=== PATIENT | female | born 1955 | race Caucasian/White ===

== ENCOUNTER 2017-05-04 20:13 | Emergency (ER) | payer MEDICAID ==
[~2017-05-04] VITALS: Ht 147.3 cm; Wt 91.2 kg
[2017-05-04 20:19] VITALS: BP 144/74
--- NOTE | 2017-05-04 21:19 | NUR ---
PT TAKEN TO BED 3
--- NOTE | 2017-05-04 21:19 | NUR ---
61Y F BIB FAMILY S/P TRIP AND FALL AT FOOD FOR LESS; SLIPPED IN WATER LAST NIGHT, LEFT FOOT PAIN, LEFT KNEE, LEFT THUMB PAIN. PT DENIES ANY LOC OR HEAD TRAUMA. PT AAOX4. BREATHING IS UNLABORED AND CLEAR BILAT. HX HTN, HIGH CHOLESTEROL
--- NOTE | 2017-05-04 21:24 | NUR ---
Dr. Zazueta evaluating patient at bedside.
[2017-05-04] MEDS ORDERED: KETOROLAC 30 MG/ML VIAL IM ONE (21:25)
--- NOTE | 2017-05-04 22:41 | NUR ---
Patient discharged with v/s stable. Written and verbal after care instructions given and explained. Patient alert, oriented and verbalized understanding of instructions. Ambulatory with steady gait. All questions addressed prior to discharge. ID band removed. Patient advised to follow up with PMD. Rx of NAPROXEN 500MG given. Patient educated on indication of medication including possible reaction and side effects. Opportunity to ask questions provided and answered.
[2017-05-04 22:42] VITALS: BP 132/79
== END 2017-05-04 22:41 | disposition home or self-care (01) ==
LOC: MED 20:13
DX: S93.602A Unspecified sprain of left foot, initial encounter (principal); M25.562 Pain in left knee; I10 Essential (primary) hypertension; E78.00 Pure hypercholesterolemia, unspecified; Z88.5 Allergy status to narcotic agent; W01.0XXA Fall on same level from slipping, tripping and stumbling without subsequent striking against object, initial encounter; Y93.89 Activity, other specified; Y92.89 Other specified places as the place of occurrence of the external cause; Y99.8 Other external cause status
CPT/HCPCS: 73562; 73630; 96372; 99284; J1885

== ENCOUNTER 2022-09-17 16:16 | Emergency (ER) | payer OTHER, MEDICAID ==
[~2022-09-17] VITALS: Ht 157.5 cm; Wt 88.5 kg
[2022-09-17 16:23] VITALS: BP 107/47
--- NOTE | 2022-09-17 16:27 | NUR ---
PT WHEELCHAIR ASSISTED TO BED 7
--- NOTE | 2022-09-17 16:30 | NUR ---
66YO FEMALE PT C/O SHARP LL BACK PAIN X2DAYS. RADIATION TO BACK OF L UPPER LEG W/ PAIN AT MOST ON MOVEMENT -NUMBING OR LOSS OF SENSATION. STATES RELIEF AFTER TRAMADOL BUT STOPPED TAKING DUE TO NAUSEA. LIMITED ROM AND NON AMB AT THIS TIME DUE TO PAIN. DENIES RECENT INJURY. PT AAOX4, WHEELCHAIR ASSISTED TO ROOM. HOB POSITIONED PER COMFORT HX: HTN, HLD ALLERGIES : CODEINE
[2022-09-17] MEDS ORDERED: KETOROLAC 30 MG/ML VIAL IM ONE (16:40)
[2022-09-17] MEDS ORDERED: CYCLOBENZAPRINE 10 MG TAB PO ONE (16:40)
--- NOTE | 2022-09-17 16:40 | NUR ---
MD LOMELI AT BEDSIDE FOR EVALUATION
[2022-09-17] MEDS ORDERED: LIDOCAINE 5% 1 EA PATCH TP ONE (16:54)
[2022-09-17] MEDS ORDERED: IBUP-1842 PO (17:40)
[2022-09-17] MEDS ORDERED: LID5T TP (17:40)
[2022-09-17] MEDS ORDERED: CYCL-711 PO (17:40)
--- NOTE | 2022-09-17 17:55 | NUR ---
Note la in EDM - 09/17/22 at 1757 by PHSEP Patient discharged with v/s stable. Written and verbal after care instructions FOR [facility] given and explained. Patient alert, oriented and verbalized understanding of instructions. Ambulatory with steady gait. All questions addressed prior to discharge. ID band removed. Patient advised to follow up with PMD. Rx of FLEXERIL, MOTRIN AND LIDODERM 5% PATCH given. Opportunity to ask questions provided and answered.
[2022-09-18] MEDS ORDERED: LIDOCAINE 5% 1 EA PATCH TP SCH (09:00)
== END 2022-09-17 17:56 | disposition home or self-care (01) ==
LOC: MED 16:16
DX: M54.50 Low back pain, unspecified (principal); I10 Essential (primary) hypertension; E78.00 Pure hypercholesterolemia, unspecified; F41.9 Anxiety disorder, unspecified; Z79.899 Other long term (current) drug therapy; Z79.1 Long term (current) use of non-steroidal anti-inflammatories (NSAID); Z79.82 Long term (current) use of aspirin
CPT/HCPCS: 96372; 99283; J1885